=== PATIENT | female | born 1945 | race Caucasian/White ===

== ENCOUNTER → 2016-11-18 | Outpatient (CLI) | payer OTHER ==
[~2016-11-18] MED LIST: ACEON4 MG PO; ASPIR 8181 M1 PO; BIOTIN2500 MCG PO; CALCIUM-MAGNES1 EAC4 PO; CEFADROXIL 500500 M1 PO; COLACE100 MG PO; COMPLEX TP; FACE TP; FISHOIL OR; HYDROCODONE-APA1 TA1 PO; LECITHIN400 MG PO; LIPITOR10 MG PO; LORTAB 7.5/5001 TA3 PO; MEDROLDOSEPACK PO; MIRALAX17 GM PO; MULTIVITAMINS; PREDNISONE 10 M10 M1 PO; PREMARIN TOP; SENNA8.6 MG PO; TOPROL XL25 MG PO; VANIQA60 GM TP; VITAMIN B-12500 MCG PO; VITAMIN C + RO500 MG PO; VITAMIN D-32000 UNIT PO; VITAMIN E400 UNIT PO; XARELTO10 MG PO
== END ==
LOC: RAD 03:05
DX: Z12.31 Encounter for screening mammogram for malignant neoplasm of breast (principal)

== ENCOUNTER → 2017-12-06 | Outpatient (CLI) | payer OTHER | LOC: RAD 03:38 | DX: Z12.31 Encounter for screening mammogram for malignant neoplasm of breast (principal) ==

== ENCOUNTER → 2018-12-14 | Outpatient (CLI) | payer OTHER | LOC: RAD 10:33 | DX: Z12.31 Encounter for screening mammogram for malignant neoplasm of breast (principal) ==

== ENCOUNTER → 2019-12-04 | Outpatient (CLI) | payer OTHER | LOC: NUC 09:06 | DX: M85.869 Other specified disorders of bone density and structure, unspecified lower leg (principal); Z78.0 Asymptomatic menopausal state ==

== ENCOUNTER → 2019-12-18 | Outpatient (CLI) | payer OTHER | LOC: BC 09:39 | DX: Z12.31 Encounter for screening mammogram for malignant neoplasm of breast (principal) ==

== ENCOUNTER → 2020-05-26 | Outpatient (CLI) | payer OTHER | LOC: ULTRA 10:19 | PROVIDERS: ATTEND Internal Medicine | DX: E04.1 Nontoxic single thyroid nodule (principal); L72.0 Epidermal cyst ==

== ENCOUNTER → 2020-06-13 | Outpatient (CLI) | payer OTHER ==
--- NOTE | 2020-06-16 17:06 | PATH ---
[facility] [address] PATHOLOGY RPT PROCEDURE Name: DANILO WESTFALL Room #: REG [facility] Hector.#: [id number] Admission: 06/13/20 Date of : 43 Discharge: Report #: [id number] Path Case #: [id number] Note LCA Accession Number: [id number] TESTS RESULT FLAG UNITS REF RANGE LAB Clinician Provided Cytology Information No. of containers..01 Other (Miscellaneous) Source: [A] 01 ISTHMUS THYROID MASS DIAGNOSIS: [A] 02 ISTHMUS THYROID MASS SUSPICIOUS FOR MALIGNANCY. BETHESDA CATEGORY V. SUSPICIOUS FOR PAPILLARY CARCINOMA. SPECIMEN CONSISTS OF FOLLICULAR CELLS WITH NUCLEAR ENLARGEMENT, DENSE COLLOID, AND RARE INTRANUCLEAR PSEUDOINCLUSIONS. THIS PATTERN IS SUSPICIOUS FOR PAPILLARY THYROID CARCINOMA. THIS INTERPRETATION INCLUDES EVALUATION OF A CELL BLOCK. Comment: The concurrent needle core biopsy ([id number]) showed similar features with a predominantly follicular architecture. Definitive diagnosis is precluded by a limited sample. Correlate clinically and follow-up as indicated. The case was coreviewed by Dr. Katt Escalera and Dr. Beverly Sims who concur with my interpretation. Pathologist ICD10: 02 R89.6 Signed out by: 02 Leanna Akins MD, Pathologist NPI- [id number] Performed by: Rosa M Oliver, Design Transferrer ([facility]) Gross description: 01 30ML, ADRIANA VUONG, 2 FX 2 AD /LCS 06/13/20201920 Local FLAG LEGEND: L-Low Normal,H-High Normal,LL-Alert Low,HH-Alert High <-Panic Low,>-Panic High,A-Abnormal,AA-Critical Abnormal Performed at: [facility] [place] [address] Pranav Puga MD, [address] [facility] [address] Leanna Akins MD, [address] [address] PATHOLOGY RPT PROCEDURE Name: DANILO WESTFALL Room #: REG DHARMESH Morales#: [id number] Admission: 06/13/20 Date of : 43 Discharge: Report #: [id number] Path Case #: [id number] Specimen Comment: A courtesy copy of this report has been sent to [phone] Specimen Comment: Report sent to Performed at: 01 [facility] Francis Alvarez [address] [facility] [facility] [address], [place], [place] [id number] MD Pranav Puga MD Phone: [phone]
--- NOTE | 2020-06-16 18:06 | PATH ---
[facility] [address] [place] [address] PATHOLOGY RPT PROCEDURE Name: EM FINE Room #: REG DHARMESH Young.#: [id number] Admission: 06/13/20 Date of : 43 Discharge: Report #: [id number] Path Case #: [id number] LCA Accession Number: [id number] . 01 Material submitted: . thyroid gland - THYROID ISTHMUS MASS . 01 Clinical history: . Thyroid isthmus mass; thyroid nodule . 02 Diagnosis: Thyroid, thyroid isthmus mass, excision: - FRAGMENTS OF THYROID PARENCHYMA SHOWING FOLLICULAR ARCHITECTURE WITH FEATURES SUSPICIOUS FOR PAPILLARY THYROID CARCINOMA (PLEASE SEE COMMENT). (IUV:pit 06/16/2020) QTP 06/16/2020 1506 Local . 02 Comment: Examination shows tiny fragments of thyroid parenchyma intermixed with fibrovascular connective tissue. The thyroid parenchyma comprises approximately 50% of the specimen. Mixed micro-macrofollicular architecture is identified. The follicular cells show occasional nuclear enlargement, overlapping as well as rare pseudo inclusions. Clearing of nuclei, as well as papillary fibrovascular cores are not identified. Findings are highly suspicious for a partially sampled papillary thyroid carcinoma. The concurrent cytology specimen ([id number]) showed similar findings. Please note, the diagnosis is limited by the finite amount of sample available for review. Correlate clinically and follow up as indicated. . Dr. Katt Escalera and Dr. Beverly Sims have seen this case and concur with my diagnosis. (IUV:pit 06/16/2020) . 02 Electronically signed: . Leanna Akins MD, Pathologist NPI- [id number] . 01 Gross description: . The specimen is received in formalin, labeled "Em Fine, thyroid isthmus". Received are multiple minute fragments of pale cassidy tissue measuring 0.4 x 0.3 x 0.1 cm in aggregate dimensions. The specimen is filtered and entirely submitted in cassette A1. (CAA; 06/13/2020) QAC/QAC 06/13/2020 1847 Local . 02 Pathologist provided ICD-10: [address] [address] PATHOLOGY RPT PROCEDURE Name: EM FINE Room #: REG CLRaven Morales#: [id number] Admission: 06/13/20 Date of : 43 Discharge: Report #: [id number] Path Case #: [id number] E07.9, E04.1 . 02 CPT . [id number] Specimen Comment: A courtesy copy of this report has been sent to [phone] Specimen Comment: Report sent to Performed at: [address], [place] [id number] MD Pranav uPga MD Phone: [phone] Performed at: [address] [id number] MD Leanna Akins MD Phone: [phone]
== END | disposition home or self-care (01) ==
LOC: ULTRA 09:49
PROVIDERS: ATTEND Internal Medicine
DX: E04.1 Nontoxic single thyroid nodule (principal); R89.6 Abnormal cytological findings in specimens from other organs, systems and tissues; Z98.890 Other specified postprocedural states; Z79.899 Other long term (current) drug therapy

== ENCOUNTER 2020-06-30 07:57 | Inpatient (IN) | payer OTHER ==
[~2020-06-30] VITALS: Ht 162.6 cm; Wt 83.5 kg
[2020-06-30 08:02] VITALS: BP 140/79
[2020-06-30 09:05] LABS: HEMATOCRIT 41.1 % (37.0-47.0); HEMOGLOBIN 13.9 gm/dL (12.0-15.0); MCH 28.6 pg (26.0-34.0); MCHC 33.8 g/dL (28.0-37.0); MCV 84.5 fL (80.0-100.0); RBC 4.87 mil/uL (4.20-5.00); RDW 13.6 % (10.5-14.5); WBC 13.7 thou/uL (4.0-11.0)
[2020-06-30 09:14] LABS: ANION GAP 11 mmol/L (7-16); BUN 12 mg/dL (7-18); CALCIUM 8.7 mg/dL (8.5-10.1); CHLORIDE 101 mmol/L (98-107); CO2 26 mmol/L (21-32); CREATININE 0.8 mg/dL (0.6-1.0); GLUCOSE 126 mg/dL (74-106); POTASSIUM 3.5 mmol/L (3.5-5.1); SODIUM 138 mmol/L (136-145)
--- NOTE | 2020-06-30 09:19 | NUR ---
IV TEAM CALLED TO REQUEST IV ACCESS
[2020-06-30 09:23] LABS: ALBUMIN 3.3 g/dL (3.4-5.0); LIPASE 96 U/L (73-393); SGOT 23 U/L (15-37); SGPT 21 U/L (30-65); TOTAL BILIRUBIN 0.4 mg/dL (0.2-1.0); TOTAL PROTEIN 6.9 g/dL (6.4-8.2); TROPONIN-I <0.06 ng/mL (<0.06)
[2020-06-30 10:30] VITALS: BP 140/79
[2020-06-30 10:35] LABS: URINE BILIRUBIN NEGATIVE (Negative); URINE BLOOD NEGATIVE (Negative); URINE CLARITY CLEAR; URINE COLOR YELLOW; URINE GLUCOSE-RANDOM* NEGATIVE (Negative); URINE KETONES NEGATIVE (Negative); URINE LEUKOCYTES-REFLEX NEGATIVE (Negative); URINE NITRITE-REFLEX NEGATIVE (Negative); URINE PROTEIN (DIPSTICK) NEGATIVE (Negative); URINE SPECIFIC GRAVITY <= 1.005 (1.005-1.035); URINE UROBILINOGEN 0.2 E.U./dl (0.2-1.0)
[2020-06-30] MEDS ORDERED: BIOTIN5000 MCG PO (10:46)
[2020-06-30] MEDS ORDERED: VITAMIN B-121000 MC2 PO (10:48)
[2020-06-30] MEDS ORDERED: TURMERIC500 M2 PO (10:49)
[2020-06-30] MEDS ORDERED: CALCIUM MAGNES1 EACH PO (10:49)
[2020-06-30] MEDS ORDERED: LECITHIN1200 M1 PO (10:49)
[2020-06-30] MEDS ORDERED: PERINDOPRIL ERBU4 MG PO (10:50)
[2020-06-30] MEDS ORDERED: ALENDRONATE SOD35 MG PO (10:50)
[2020-06-30] MEDS ORDERED: PREMARIN0.3 MG PO (10:53)
[2020-06-30] MEDS ORDERED: CIPRO500 M1 PO (10:54)
[2020-06-30] MEDS ORDERED: METRONIDAZOLE500 M4 PO (10:54)
[2020-06-30] MEDS ORDERED: VANIQA45 GM TRANSDERM (10:54)
[2020-06-30] MEDS ORDERED: ZUPLENZ4 MG PO (10:55)
[2020-06-30] MEDS ORDERED: LOPRESSOR50 MG PO (10:58)
[2020-06-30 14:56] VITALS: BP 126/54
--- NOTE | 2020-06-30 19:48 | NUR ---
75 YO FEMALE ADMITTED TO ER FROM ED. A&OX4, IV INFUSING IN R AC. C/O RLQ PAIN. SPOUSE AT BEDSIDE. MORPHINE GIVEN FOR PAIN, ORIENTED PT TO CALL/ ROOM. VSS.
[2020-06-30 19:55] VITALS: BP 149/70
[2020-07-01] VITALS (9 sets, daily range): BP systolic 129–155; BP diastolic 57–77
--- NOTE | 2020-07-01 04:12 | NUR ---
ASSUMED PT CARE AT 1900. PT IS A&OX4. PAIN BEING MANAGED WIHT IV PAIN MEDS. NPO STATUS MAINTAINED. DR ARGUELLO BY WEN YOUNG IN AM. FLUIDS AND ANTIBIOTICS INFUSING. STANDBY ASSIST TO TOILET, USES WALKER DUE TO PAIN MAKING WALKING DIFFICULT. TEMP 99.6, PT DID NOT WANT TO DO THE TYLENOL RECTAL, WANTS TO RECHECK TEMP LATER. CURRENTLY RESTING IN BED WIHT EYES CLOSED, WILL CONTINUE TO MONITOR.
--- NOTE | 2020-07-01 08:11 | NUR ---
ASSESSMENT: CM REVIEWED CHART AND SPOKE WITH PATIENT. PT IS ALERT AND ORIENTED X4. PT IS HERE DUE TO ACUTE APPENDICITIS. PT REPORTS LIVING IN A HOUSE WITH HER . PT REPORTS ABOUT 2 STEPS TO ENTER AND NO STEPS SHE USES ONCE INSIDE. PT STATES THEY HAVE A BASEMENT BUT SHE DOES NOT GO DOWN THERE. PT REPORTS BEING FULLY INDEPENDENT WITH ADLS AND AMBULATION. PT REPORTS BEFORE THIS ONSET SHE WAS WALKING A MILE A DAY OUTSIDE. PT REPORTS THAT SHE HAS HAD [facility] IN THE PAST BUT HAS NOT HAD THEM RECENTLY. CM DISCUSSED ROLE. PT DOES NOT ANTICIPATE ANY NEEDS FROM CM AT DISCHARGE. CM WILL CONTINUE TO FOLLOW TO ASSIST NEEDED. PT IS TO HAVE LAP APPENDECTOMY.
--- NOTE | 2020-07-01 09:29 | NUR ---
Assumed care of pt. at 0700. Pt. is in pain and curious when next pain medication will be available. Pt. has many questions about when her surgery will be and appears to be very anxious. Pt. also asked questions regarding IV pumps and purposes.
--- NOTE | 2020-07-01 16:02 | EKG ---
[facility] [place] [address] ELECTROCARDIOGRAM REPORT Name: DANILO WESTFALL Room #: 447-P ADM IN M.R.#: [id number] Admission: 06/30/20 Attend Phys: Rodney Garland MD Discharge: Date of : 43 Report #: [id number] THIS REPORT FOR: cc: Javi Smith MD, Stany A. MD Couchonnal, Luis F. MD ~ THIS REPORT FOR: //name// [facility] ED Test Date: 2020-06-30 Test Time: 08:24:27 Pat Name: DANILO WESTFALL Department: Room: [facility] Gender: F Mis Director: EASTON MARQUES : 1945 Requested By: Shanae Shaw Order Number: [id number] MD: Maximus Jha Measurements Intervals [place] Rate: 66 P: 63 HI: 159 QRS: -16 QRSD: 99 T: 32 QT: 419 QTc: 439 Interpretive Statements Sinus rhythm Supraventricular bigeminy Borderline left axis deviation Anteroseptal infarct, age indeterminate No previous ECG available for comparison Electronically Signed On 07-01-2020 16:02:38 CDT by Maximus Jha [email or web address] <ELECTRONICALLY SIGNED> By: Maximus Jha MD 07/01/20 1602 3 3 Maximus Jha MD /EPI
[2020-07-02 04:42] VITALS: BP 156/62
[2020-07-02 06:16] LABS: ABSOLUTE NEUTROPHILS 9.2 thou/uL (1.4-8.2); BASOPHILS 0.4 % (0.0-2.0); EOSINOPHILS 0.7 % (0.0-3.0); HEMATOCRIT 35.5 % (37.0-47.0); LYMPHOCYTES 21.5 % (24.0-44.0); MCH 28.5 pg (26.0-34.0); MCHC 33.8 g/dL (28.0-37.0); MCV 84.3 fL (80.0-100.0); PLATELET COUNT 182 thou/uL (150-400); POLYS 67.4 % (36.0-66.0); RDW 14.1 % (10.5-14.5); WBC 13.6 thou/uL (4.0-11.0)
--- NOTE | 2020-07-02 06:20 | NUR ---
RECEIVED CARE OF THIS PATIENT AT 1900. PATIENT ALERT AND ORIENTED X4. C/O PAIN [id number]. ALTERNATING MOST OF THE TIME BETWEEN IVP AND PO PAIN MED. PATIENT HAS EXTERNAL FEMALE CATH. HAS LG IN R UPPER QUAD. TWO SMALL INCISIONS ON ABD WITH DERMABOND. NO S/S OF INFECTION. IV IN COURTNEY PATENT WITH FLUIDS INFUSING. O2 AT 3L/NC.SLEPT LITTLE THIS SHIFT.
[2020-07-02 07:11] VITALS: BP 158/79
[2020-07-02 13:08] VITALS: BP 151/74
[2020-07-02 19:35] VITALS: BP 130/69
--- NOTE | 2020-07-02 19:36 | NUR ---
Assumed care of pt. at 0700. Pt. is in a lot of pain. Pt. requires pain meds at exact times available or becomes distressed and pain at a maximum thresh hold. Still unable to ambulate with toleration. Fall precuations in place.
[2020-07-03 03:45] VITALS: BP 156/90
--- NOTE | 2020-07-03 04:17 | NUR ---
ASSUMED PT CARE AT 1900.PT C/O PAIN ON HER ABD,ALT BETWEEN IV AND PO MED.ORDER NOTED FOR ZOFRAN FOR NAUSEA.3 LAP SITES NOTED.LG DRAIN TO HER R ABD.EXT FEMALE CATH IN PLACE.PT REPOSITIONED PER HER REQUEST.PT SLEEPING ON HER BED AT THIS TIME.FALL PRECAUTIONS IN PLACE,CALL LIGHT WITHN REACH.
[2020-07-03 05:48] LABS: HEMOGLOBIN 12.6 gm/dL (12.0-15.0); MCH 28.1 pg (26.0-34.0); MCHC 33.1 g/dL (28.0-37.0); MCV 84.8 fL (80.0-100.0); RBC 4.48 mil/uL (4.20-5.00); RDW 13.8 % (10.5-14.5); WBC 19.1 thou/uL (4.0-11.0)
[2020-07-03 06:00] LABS: CALCIUM 7.4 mg/dL (8.5-10.1); CREATININE 0.7 mg/dL (0.6-1.0); MAGNESIUM 1.9 mg/dL (1.8-2.4)
[2020-07-03 08:00] VITALS: BP 147/57
--- NOTE | 2020-07-03 08:11 | NUR ---
SPOKE WITH DR GAFFNEY MORPHINE 4 MG GIVEN AFTER DCD GAVE ORDER FOR 1 TIME ONLY WAS GIVEN AT 07:51, PT WAS ALSO CHANGED TO NPO AND IS TO HAVE KUB. SPOKE WITH PHARMACIST TO MAKE SURE ORDER WAS IN AND MED WAS CHARTED CORRECT.
--- NOTE | 2020-07-03 13:23 | NUR ---
PPN STATRED AT 100/HR AT THIS TIME HAD TO LOCATER FILTER FOR IV TUBING CS DID NOT HAVE SO WENT TO ER/ICU AND FOUND. PT RESTING IN BED WAS GIVEN PRN PAIN MED AND GOING TO SLEEP WHO WAS AT BEDSIDE IS GOING TO GET LUNCH. PT IS PLEASANT AND COOPERATIVE WITH CARE.
[2020-07-03 16:59] VITALS: BP 127/73
--- NOTE | 2020-07-03 18:47 | NUR ---
COVID 19 TEST RESULTS SHOW NOT DETECTED
[2020-07-03 22:10] VITALS: BP 141/60
[2020-07-04 03:00] VITALS: BP 144/99
--- NOTE | 2020-07-04 03:08 | NUR ---
PT'S PAIN MANAGED WITH IV MED.PT UP TO THE BSC WITH ASSIST X1.PT STILL HAVE NOT HAD A BM YET.PT STILL ON PPN FOR NUTRITION.LAP SITES INRACT WITH DRAIN TO HER RUQ ON HER ABD.PT HAS BEEN SLEEPING ON AND OFF.HOURLY ROUNDS MAINTAINED. FALL PRECAUTIONS IN PLACE,CALL LIGHT WITHIN REACH.
[2020-07-04 05:14] LABS: ALBUMIN 2.5 g/dL (3.4-5.0); CALCIUM 8.1 mg/dL (8.5-10.1); CREATININE 0.8 mg/dL (0.6-1.0); MAGNESIUM 2.2 mg/dL (1.8-2.4); POTASSIUM 3.4 mmol/L (3.5-5.1); TOTAL BILIRUBIN 0.4 mg/dL (0.2-1.0); TOTAL PROTEIN 6.3 g/dL (6.4-8.2)
[2020-07-04 07:08] LABS: HEMATOCRIT 38.4 % (37.0-47.0); HEMOGLOBIN 12.6 gm/dL (12.0-15.0); MCH 27.8 pg (26.0-34.0); MCHC 32.7 g/dL (28.0-37.0); MCV 85.2 fL (80.0-100.0); RBC 4.51 mil/uL (4.20-5.00); RDW 14.3 % (10.5-14.5); WBC 25.8 thou/uL (4.0-11.0)
[2020-07-04 07:29] VITALS: BP 148/65
[2020-07-04 11:16] VITALS: BP 149/83
--- NOTE | 2020-07-04 11:41 | NUR ---
SW reviewed chart and spoke with nursing. Pt has had two negative COVID tests. Pt is currently NPO due to post-op ileus. Pt may need TPN or NG tube placed. Pt lives at home with her spouse. No discharge needs anticipated at this time. SW is available should needs arise.
--- NOTE | 2020-07-04 13:07 | NUR ---
VASCULAR ACCESS CONSULTED FOR PICC LINE. PT'S LABS,MEDS,HX,ORDER AND CONSENT VERIFIED. DISCUSSED BENEFITS AND RISK OF PICC WITH PT VERBALIZED UNDERSTANDING. ROSARIO BRACHIAL WAS WIDELY PATENT WITH USG. 4FR DL POWER PICC TRIMMED TO 43CM INSERTED TO 0CM. STAT CXR ORDERED. PT TOLERATED WELL
--- NOTE | 2020-07-04 14:15 | NUR ---
PICC TOO DEEP WITHDREW 2CM PER CXR REPORT. STAT CXR ORDERED
--- NOTE | 2020-07-04 14:40 | NUR ---
CXR CONFIRMED PICC AT [facility]. PICC RELEASED FOR IMMEDIATE USE TO MAGDI DANIEL PER PROTOCOL
[2020-07-04 15:46] VITALS: BP 167/72
--- NOTE | 2020-07-04 19:41 | NUR ---
Assumed care of pt. at 0700. Pt. is in a lot of pain and is still having issues with constipation. Restoril was given mid day and she began to have large bowel movements throughout the day. This still did not provide adequate relief of pain however. Fall precautions in place.
[2020-07-04 20:50] VITALS: BP 155/59
--- NOTE | 2020-07-05 06:00 | NUR ---
Pt. having trouble with urinary retention during the shift. Pt. straight cath times one and still having urinary retention this am. Lala VARELA called and notified and new order to insert kyle catheter (See cpoe and poc). Pt. also with nausea and vomiting and Lala VARELA notified (see new orders). Zofran given with little relief and compazine given with better relief (see cpoe). Bed alarm is on.
[2020-07-05 08:41] VITALS: BP 183/89
[2020-07-05 17:02] VITALS: BP 171/68
[2020-07-05 20:26] VITALS: BP 154/83
--- NOTE | 2020-07-05 21:24 | NUR ---
PT RESTING IN BED DOES NOT WANT TO GET UP IN BEDSIDE CHAIR. AT BEDSIDE. LUNGS CTA HAS O2 AT 2 L/NC. BS XS 4. HAS TREADWELL CATH WITH CLEAR YELLOW URINE EMPTIED 1700 CC PUT NG TUBE IN LEFT NARE TO DECOMPRESS ABD. HAS GREEN COLORED FLUID IN CANISTER. APPROX 120 CC AT 1700 PT MOVED TO [address] [place] [address]. TO APPLY TELE MONITORING. CONTINUES ON PPN FLUIDS IV NS FLUIDS AND IV ABT'S AND GIVEN PRN IV PUSH FENTANYL. LG DRAIN WITH 15 CC IN DRAIN BOTTLE.
--- NOTE | 2020-07-06 06:45 | NUR ---
Pt. rested quietly at short intervals during the night when checked on during frequent rounds. No noted emesis. Ngt patent to low intermittent suction. She has c/o abdominal pain and ivp meds given (see emar) with some relief noted. Bed alarm is on.
[2020-07-06 07:24] LABS: HEMATOCRIT 32.1 % (37.0-47.0); HEMOGLOBIN 10.8 gm/dL (12.0-15.0); MCH 28.3 pg (26.0-34.0); MCHC 33.7 g/dL (28.0-37.0); MCV 84.1 fL (80.0-100.0); RBC 3.81 mil/uL (4.20-5.00); RDW 14.2 % (10.5-14.5); WBC 14.3 thou/uL (4.0-11.0)
[2020-07-06 07:40] LABS: ALBUMIN 1.9 g/dL (3.4-5.0); CALCIUM 7.8 mg/dL (8.5-10.1); CREATININE 0.6 mg/dL (0.6-1.0); MAGNESIUM 2.1 mg/dL (1.8-2.4); TOTAL BILIRUBIN 0.3 mg/dL (0.2-1.0); TOTAL PROTEIN 5.3 g/dL (6.4-8.2)
[2020-07-06 07:44] VITALS: BP 160/76
--- NOTE | 2020-07-06 17:12 | NUR ---
Assumed pt care at 7am.Pt in bed resting with ng to lis on left nare. Assessment completed.vss but elevated bp noted. Medicated pt with fentanyl q3h for abdominal pain with relief.Ng irrigated as needed.Dr Roger and Scarlet here,order noted. at bs most of the time this shift.Will continue to monitor.
[2020-07-06 19:36] VITALS: BP 160/100
--- NOTE | 2020-07-07 03:20 | NUR ---
pain controlled this shift. patient had bowel movement x2. ng tube on left nare is intact. shira on right upper quad has minimum serosanguinous drainage. patient incontinent pericare and barrier cream applied as needed. patient has catheter, cath care done. patient turned q 2 hours. patient in bed asleep at this time breathing regular and unlaboured.
[2020-07-07 06:03] VITALS: BP 152/84
[2020-07-07 06:11] LABS: HEMATOCRIT 32.2 % (37.0-47.0); HEMOGLOBIN 10.8 gm/dL (12.0-15.0); MCH 28.2 pg (26.0-34.0); MCHC 33.5 g/dL (28.0-37.0); MCV 84.1 fL (80.0-100.0); RBC 3.83 mil/uL (4.20-5.00); RDW 14.1 % (10.5-14.5); WBC 13.6 thou/uL (4.0-11.0)
[2020-07-07 06:40] LABS: CREATININE 0.6 mg/dL (0.6-1.0); PHOSPHORUS 3.5 mg/dL (2.5-4.9); POTASSIUM 3.2 mmol/L (3.5-5.1)
[2020-07-07 07:29] VITALS: BP 173/88
--- NOTE | 2020-07-07 07:44 | O ---
[facility] [place] [address] OPERATIVE REPORT Name: DANILO WESTFALL Room #: 451-P ADM IN M.R.#: [id number] Admission: 06/30/20 Attend Phys: Rodney Garland MD Discharge: Date of : 43 Report #: [id number] THIS REPORT FOR: cc: Javi Smith MD,Randall Roche MD, MD ~ CC: Rodney Smith DATE OF SERVICE: 07/01/2020 PREOPERATIVE DIAGNOSIS: Acute appendicitis. POSTOPERATIVE DIAGNOSIS: Acute perforated appendicitis with intra-abdominal abscess. OPERATION: Diagnostic laparoscopy with drainage of intraperitoneal abscess. SURGEON: Randall Roger MD CO-SURGEON: Raimundo Del Toro MD ANESTHESIA: General. ESTIMATED BLOOD LOSS: 200 mL. SPECIMEN: None. DESCRIPTION OF PROCEDURE: After informed consent was obtained, the patient was brought to the operating room and placed supine. SCDs were placed and working, preoperative antibiotics were administered, and general anesthesia was induced. The abdomen was prepped and draped in the usual sterile fashion. A 10 mm incision was made below the umbilicus. Fascia was incised and a trocar was placed. Pneumoperitoneum was established. A right upper quadrant and left lower quadrant 5 mm trocar was placed. I explored down to the right lower quadrant. There was adherent omentum. This omentum was peeled medially. This released a large pus pocket. The pus was suctioned out. I was unable to try to dissect in this phlegmonous cavity. The inflammation was severe. I did not feel it would be safe to dissect more in this cavity without causing injury to the bowel and nearby structures. There was a small bleeding vessel from a branch of the gonadals. This was clipped and there was good hemostasis. The area was then copiously irrigated with normal saline. An 8 mm trocar was placed in the right upper quadrant and a 15-Yakut drain was placed into this cavity after it was copiously irrigated and suctioned. The CO2 was then released. [facility] [address] [place] [address] OPERATIVE REPORT Name: DANILO WESTFALL Room #: 451-P ADM IN M.R.#: [id number] Admission: 06/30/20 Attend Phys: Rodney Garland MD Discharge: Date of : 43 Report #: [id number] The fascia at the umbilicus was closed with a auadox-jz-zptbo 0 Vicryl. Skin was closed with 4-0 Monocryl. Incisions were sealed with Dermabond. COMPLICATIONS: None. DISPOSITION: The patient was taken to recovery in satisfactory condition. <ELECTRONICALLY SIGNED> By: Randall Roger MD 07/07/20 0744 1253 1306 Randall Roger MD /nt
[2020-07-07 11:35] LABS: INR 1.1; PROTIME 11.5 Seconds (9.3-11.4)
--- NOTE | 2020-07-07 13:49 | NUR ---
ASSUMED CARE AT 0700. PT IS ALERT AND ORIENTED/FORGETFUL. VSSA/2L O2. ON TELE. H/O AFIB. PAIN MEDS GIVEN ORDERED. SHE IS NPO WITH NG TO LOW INT SUCTION WITH GREEN BILE OUT. HER BS ARE HYPO, BUT SHE IS PASSING GAS/STOOLING. TREADWELL IS DRAINING YELLOW URINE NORMALLY. LG DRAIN TO RUQ DRAINING. PICC IS INFUSING WITHOUT ISSUES. LAP SITES ARE C/D/I. PT UNABLE TO GET OUT OF BED YET. ENCOURAGE TURNING OR SHIFTING WEIGHT. PT VERBALIZES UNDERSTANDING TO CALL IF NEEDS ARISE. CALL LIGHT IN REACH. AT BS. WILL CONTINUE TO MONITOR
[2020-07-07 15:11] VITALS: BP 154/85
--- NOTE | 2020-07-07 15:50 | NUR ---
PT WAS SUPPOSED TO HAVE A DRAIN PLACED FOR ABDOMINAL ABSESSES BUT IT IS NOW TO BE PLACED TOMORROW. CARE TEAM INDICATING THAT PT WILL NEED TRANSFER TO [facility] FOR UROLOGY SERVICES DAY OF DRAIN PLACEMENT OR DAY AFTER. CM FOLLOWING REGARDING DC PLANNING.
[2020-07-07 20:10] VITALS: BP 152/104
--- NOTE | 2020-07-08 04:08 | NUR ---
PAIN CONTROLLED THIS SHIFT. CATH CARE DONE THIS SHIFT. LG TUBE HAS MINIMUM SENGUNEOUS DRAINAGE. NG TUBE IS ON LEFT NARE WITH GREENISH OUTPUT. PATIENT IS ON 2L OXYGEN NO SOA OR DISTRESS NOTED THIS SHIFT. PATIENT IN BED ASLEEP AT THIS TIME BREATHING REGULAR AND UNLABOURED.
[2020-07-08 05:33] VITALS: BP 168/90
[2020-07-08 07:02] LABS: CALCIUM 8.3 mg/dL (8.5-10.1); CREATININE 0.6 mg/dL (0.6-1.0); PHOSPHORUS 3.6 mg/dL (2.5-4.9); POTASSIUM 3.6 mmol/L (3.5-5.1)
[2020-07-08 07:44] VITALS: BP 143/78
--- NOTE | 2020-07-08 12:21 | NUR ---
ASSUMED CARE AT 0700. PT IS ALERT AND ORIENTED. VSSA/2L O2. ON TELE. PAIN MEDS GIVEN NEEDED. TREADWELL IN PLACE. STILL MUTIPLE LOOSE STOOLS DURING THE DAY. NG IN PLACE TO LIS. NPO. LG DRAIN IN PLACE. PICC LINE INFUSING. LAP SITES ARE C/D/I. PT TO HAVE SECOND DRAIN PLACED TODAY. EDUCATION PROVIDED TO PT REGARDING POC AND SAFETY. CALL LIGHT IN REACH. WILL CONTINUE TO MONITOR
--- NOTE | 2020-07-08 15:04 | NUR ---
PT HAD GONE DOWN TO IR TO HAVE ANOTHER DRAIN PLACED THIS DAY BUT HAD BEEN SENT BACK UP THERE WAS A LAB THAT WAS ELEVATED. ARGUELLO INDICATED THAT SHE DOESN'T NEED ABOTHER DRAIN THAT ISSUE IS RESOLVING. KO AND SAUNDRA INDICATED THAT CM SHOULD PROCEED WITH INITIATING TRANSFER TO [facility] FOR UROLOGY SERVICES. CM MET WITH PT AND SPOUSE AND THEY ARE AWARE AND CONSENTING. CM CAONTACTED [facility] RANGE ECOLOGIST AND INDICATED PREFERENCE FOR [facility]. SHE INDICATED THAT [facility] IS HOLDING IN THE ED AND OTHER FACILITIES ARE ON DIVERSION SO TRANSFER TODAY DIDN'T LOOK LIKELY. CM FAXED CLINICAL INFO TO THEM AND PROVIDED DR. CONNELL'S NUMBER FOR THEM TO CONTACT FOR ADDITIONAL INFO.
[2020-07-08 19:23] VITALS: BP 164/74
--- NOTE | 2020-07-09 05:55 | NUR ---
VSS-AFEBRILE. RESTED WELL THROUGH NIGHT WITH FEW NEEDS. C/O ABDOMINAL PAIN THAT IS WELL RELIEVED WITH IV FENTANYL. LG DRAIN PRODUCING SMALL AMOUNT OF SEROUS DRAINAGE, LAP SITES CLOSED, AND ARE WITHOUT S/S OF INFECTION. TREADWELL DRAINING ADEQUATE AMOUNTS OF CLEAR, YELLOW URINE TO DEPENDENT DRAINAGE BAG. CALLS APPROPRIATELY FOR ANY NEEDED ASSISTANCE. INCONTINENT OF RUNNY STOOL TWICE DURING SHIFT.
[2020-07-09 07:37] VITALS: BP 142/85
--- NOTE | 2020-07-09 09:21 | NUR ---
Assumed patient care at 0715. Vital signs stable, LSCTA, ABD soft and tender, BS x's 4 (hypoactive). Patient is complaining of abdominal pain "level eight." She had Fentanyl 0.25ml at 0630; it is scheduled q 3 hours. Patient is waiting to go to [facility] for Urinary Stent Placement, as there is no Urologist at this facility. Waiting for bed availability. Will continue to monitor.
--- NOTE | 2020-07-09 11:15 | NUR ---
discussed with hospitalist earlier today, still plan will need to be to transfer to [facility] with urology. cm notified by cm team that [facility] called and they are on diversion. will discuss with pt and family and send out other referral to transfer.
[2020-07-09 13:13] VITALS: BP 150/81
== END 2020-07-09 18:45 | disposition short-term general hospital (02) | DRG 871 ==
LOC: ER 07:57 → EROBS 11:11 → 4S 11:11 → 4W 07-05 17:47
PROVIDERS: Hospitalist; Radiology Vascular & Interventional Radiology; Student in an Organized Health Care Education/Training Program; Surgery; ADMIT Internal Medicine; ATTEND Internal Medicine
PROC: 0D9W4ZZ Drainage of Peritoneum, Percutaneous Endoscopic Approach (ICD-10-PCS; 2020-07-01)
PROC: 02HV33Z Insertion of Infusion Device into Superior Vena Cava, Percutaneous Approach (ICD-10-PCS; principal; 2020-07-04)
DX: A41.9 Sepsis, unspecified organism (principal); K35.33 Acute appendicitis with perforation, localized peritonitis, and gangrene, with abscess; E44.1 Mild protein-calorie malnutrition; N13.6 Pyonephrosis; K56.7 Ileus, unspecified; I10 Essential (primary) hypertension; M81.0 Age-related osteoporosis without current pathological fracture; G47.00 Insomnia, unspecified; E53.8 Deficiency of other specified B group vitamins; K58.1 Irritable bowel syndrome with constipation; E87.6 Hypokalemia; Z20.828 Contact with and (suspected) exposure to other viral communicable diseases; Z85.850 Personal history of malignant neoplasm of thyroid; Z85.6 Personal history of leukemia; Z79.82 Long term (current) use of aspirin; Z79.899 Other long term (current) drug therapy; Z79.01 Long term (current) use of anticoagulants; Z68.31 Body mass index [BMI] 31.0-31.9, adult
CPT/HCPCS: 10045; 10195; 27000; 50101; 50411; 50555; 50739; 50740; 51489; 52265; 52266; 53040; 53307; 53312; 53314; 54118; 55245; 56525; 56526; 62110; 62900

== ENCOUNTER 2020-07-22 09:23 | Emergency (ER) | payer OTHER ==
[~2020-07-22] VITALS: Ht 162.6 cm; Wt 73.5 kg
--- NOTE | ~2020-07-22 | EMS ---
[address] [place] [address] EMS Patient Care Report Name: DANILO EWSTFALL Room #: REG SAGE Morales#: [id number] Admission: 07/22/20 Attend Phys: Discharge: Date of : 43 Report #: [id number] THIS REPORT FOR: //name// Report Transmitted: 07/22/2020 10:50 EMS Care Summary [facility] MED-ACT Incident [id number] @ 07/22/2020 08:57 Incident Location [address] [place] [address] Patient DANILO WESTFALL Female, 75 Years 1945 Patient Address [address] [place], [place] [id number] Patient History Osteoporosis,Atrial Fibrillation,Appendectomy, Patient Allergies Nitroglycerin, Patient Medications Metoprolol, Chief Complaint "I dont feel right." Disposition Transported No Lights/[place] Dispatch Reason Chest Pain (Non-Traumatic) Transported To Narrative "I don't feel right." Dispatched to this location emergent for a female PT with complaints of feeling [address] [place] [address] EMS Patient Care Report Name: DANILO WESTFALL Room #: REG Andrew#: [id number] Admission: 07/22/20 Attend Phys: Discharge: Date of : 43 Report #: [id number] like her heart was beating too fast and feeling sweaty. Staff reports they contacted 911 because the PT was experiencing chest pain, hypertension and was diaphoretic. They report they gave her one dose of nitro at 8:53 AM. Staff reports these were doctors orders and were unaware that she was allergic to the medication. They deny any adverse reactions since the medication was given. PT reports she had her appendix rupture about 3 weeks earlier and she has since had infections that have resulted in two drainage ports being placed in her abdomen and a PICC like for antibiotic administration. She reports currently being on antibiotics orally. PT denies any difficulty breathing. They denies and chest pain and reports she never experienced chest pain. She states she felt like her heart was beating to fast and she felt sweaty. She states for the last few days she has had diarrhea and been vomiting. She denies any fevers and staff confirms no fevers. PT denies any abdominal pain. She denies feeling dizzy. She reports she has been eating and drinking normally, but gets nauseated immediately after eating. She denies any recent changes to her medication. She reports she feels weaker. Initial Vitals @09:09MI Suspected: false @09:08MI Suspected: false @09:05P: 91,R: 18,BP: 172/94,Pain: 0/10,GCS: 15,Temp: 98F,SpO2: 94,Revised Trauma: 12, @09:14P: 93,R: 18,BP: 152/100,GCS: 15,SpO2: 95,Revised Trauma: 12, Assessments @09:02MENTAL:Person Oriented,Time Oriented,Place Oriented,Event Oriented,SKIN:Pale,HEENT:Head/Face: No Abnormalities,Neck/Airway: No Abnormalities,LUNG SOUNDS:General: No Abnormalities,ABDOMEN:General: No Abnormalities,PELVIS//GI:EXTREMITIES:PULSE:Radial: 2+ Normal,NEURO: Impression Generalized Weakness Procedures @09:0812-Lead ECG@09:0912-Lead ECG Timeline 08:54,Call Received 08:54,Psap Call 08:57,Dispatched 08:57,En Route 08:58,On Scene 09:00,At Patient 09:05,BP: 172/94 M,PULSE: 91,RR: 18 R,SPO2: 94 Ox,ETCO2: ,BG: ,PAIN: 0,GCS: 15, 09:08,12-Lead ECG, 09:08,BP: / M,PULSE: ,RR: R,SPO2: Ox,ETCO2: ,BG: ,PAIN: ,GCS: , [address] [place] [address] EMS Patient Care Report Name: DANILO WESTFALL [facility] #: [facility] [id number] Admission: 07/22/20 Attend Phys: Discharge: Date of : 43 Report #: [id number] 09:09,12-Lead ECG, 09:09,BP: / M,PULSE: ,RR: R,SPO2: Ox,ETCO2: ,BG: ,PAIN: ,GCS: , 09:11,Depart Scene 09:14,BP: 152/100 M,PULSE: 93,RR: 18 R,SPO2: 95 Ox,ETCO2: ,BG: ,PAIN: ,GCS: 15, 09:19,At Destination 09:39,Call Closed Disclaimer [email or web address] Copyright 2020 [email or web address] This EMS Care Summary contains data elements from the applicable legal record (which may be displayed differently). It is designed to provide pertinent information for the following purposes: continuity of care, clinical quality, and state data reporting. The complete legal record is available to ED staff and administrators of the receiving hospital in [employer]'s Patient Tracker. All data is provided "as is."
[~2020-07-22 09:23] MED LIST changes: +ALENDRONATE SOD35 MG PO; +BIOTIN5000 MCG PO; +CALCIUM MAGNES1 EACH PO; +CIPRO500 M1 PO; +LECITHIN1200 M1 PO; +LOPRESSOR50 MG PO; +METRONIDAZOLE500 M4 PO; +PERINDOPRIL ERBU4 MG PO; +PREMARIN0.3 MG PO; +TURMERIC500 M2 PO; +VANIQA45 GM TRANSDERM; +VITAMIN B-121000 MC2 PO; +ZUPLENZ4 MG PO
[2020-07-22 10:30] LABS: HEMATOCRIT 31.1 % (37.0-47.0); HEMOGLOBIN 10.3 gm/dL (12.0-15.0); MCH 27.3 pg (26.0-34.0); MCHC 33.2 g/dL (28.0-37.0); PLATELET COUNT 138 thou/uL (150-400); RBC 3.79 mil/uL (4.20-5.00); RDW 14.4 % (10.5-14.5); WBC 3.7 thou/uL (4.0-11.0)
[2020-07-22 10:40] LABS: ANION GAP 9 mmol/L (7-16); BUN 4 mg/dL (7-18); CALCIUM 8.3 mg/dL (8.5-10.1); CHLORIDE 103 mmol/L (98-107); CO2 27 mmol/L (21-32); CREATININE 0.6 mg/dL (0.6-1.0); GLUCOSE 148 mg/dL (74-106); POTASSIUM 3.3 mmol/L (3.5-5.1); SODIUM 139 mmol/L (136-145)
[2020-07-22 10:49] LABS: MAGNESIUM 1.9 mg/dL (1.8-2.4); TROPONIN-I <0.06 ng/mL (<0.06)
[2020-07-22 11:07] LABS: ATYPICAL LYMPHS 1 %
[2020-07-22 11:08] LABS: ANISOCYTOSIS SLIGHT
[2020-07-22 11:58] LABS: URINE BILIRUBIN NEGATIVE (Negative); URINE BLOOD 3+ (Negative); URINE COLOR LT PINK; URINE GLUCOSE-RANDOM* NEGATIVE (Negative); URINE KETONES NEGATIVE (Negative); URINE LEUKOCYTES-REFLEX 1+ (Negative); URINE NITRITE-REFLEX NEGATIVE (Negative); URINE PROTEIN (DIPSTICK) TRACE (Negative); URINE SPECIFIC GRAVITY 1.015 (1.005-1.035); URINE UROBILINOGEN 0.2 E.U./dl (0.2-1.0)
[2020-07-22 11:59] LABS: URINE CLARITY HAZY
[2020-07-22 12:01] LABS: CASTS None Seen /LPF (None Seen); SQUAMOUS 0-3 Few /LPF (0-3); URINE RBC >20 Many /HPF (0-2); URINE WBC-REFLEX 0-5 Rare /HPF (0-5)
[2020-07-22 12:02] LABS: BACTERIA-REFLEX None Seen /HPF (None Seen); CALCIUM OXALATE 0-3 Few /LPF (None Seen); YEAST-REFLEX Present (None Seen)
[2020-07-22 13:26] VITALS: BP 159/76
--- NOTE | 2020-07-22 14:45 | EKG ---
[facility] [place] [address] ELECTROCARDIOGRAM REPORT Name: DANILO WESTFALL [facility] [id number] Admission: 07/22/20 Attend Phys: Discharge: 07/22/20 Date of : 43 Report #: [id number] THIS REPORT FOR: cc: Javi Smith MD, Stany A. MD Lundgren, Craig H. MD [facility] ~ THIS REPORT FOR: //name// [facility] ED Test Date: 2020-07-22 Test Time: 11:25:44 Pat Name: DANILO WESTFALL Department: Room: Gender: F Bean Dumper: : 1945 Requested By: John Mayorga Order Number: [id number] MD: Guzman Ledesma Measurements Intervals Er[place] Rate: 93 P: 55 RI: 154 QRS: 25 QRSD: 99 T: 44 QT: 402 QTc: 501 Interpretive Statements Sinus rhythm Occasional premature ventricular complexes Nonspecific T abnormalities Borderline prolonged QT interval Compared to ECG 06/30/2020 08:24:27 Ventricular premature complex(es) now present T-wave abnormality now present Electronically Signed On 07-22-2020 14:45:41 CDT by Guzman Ledesma [email or web address] <ELECTRONICALLY SIGNED> By: Guzman Ledesma MD, [facility] 07/22/20 1445 1125 1125 Guzman Ledesma MD, [facility] /EPI
== END 2020-07-22 13:27 | disposition home or self-care (01) ==
LOC: ER 09:23
PROVIDERS: Emergency Medicine
DX: R00.2 Palpitations (principal); R06.82 Tachypnea, not elsewhere classified; R61 Generalized hyperhidrosis; C91.10 Chronic lymphocytic leukemia of B-cell type not having achieved remission; C73 Malignant neoplasm of thyroid gland; I10 Essential (primary) hypertension; Z90.89 Acquired absence of other organs; Z79.899 Other long term (current) drug therapy; Z79.82 Long term (current) use of aspirin

== ENCOUNTER → 2020-09-25 | Outpatient (CLI) | payer OTHER | LOC: ULTRA 10:15 | PROVIDERS: ATTEND Otolaryngology Plastic Surgery within the Head & Neck | DX: C73 Malignant neoplasm of thyroid gland (principal); E04.2 Nontoxic multinodular goiter ==

== ENCOUNTER → 2020-09-26 | Outpatient (CLI) | payer OTHER | LOC: SJCVC 09:58 | PROVIDERS: ATTEND Internal Medicine Cardiovascular Disease | DX: R94.31 Abnormal electrocardiogram [ECG] [EKG] (principal); I34.1 Nonrheumatic mitral (valve) prolapse; I10 Essential (primary) hypertension; E78.00 Pure hypercholesterolemia, unspecified; I34.0 Nonrheumatic mitral (valve) insufficiency; I25.10 Atherosclerotic heart disease of native coronary artery without angina pectoris; Z79.899 Other long term (current) drug therapy ==

== ENCOUNTER → 2020-09-29 | Outpatient (CLI) | payer OTHER | LOC: SJCVCIMAG 07:39 | PROVIDERS: ATTEND Internal Medicine Cardiovascular Disease | DX: I08.1 Rheumatic disorders of both mitral and tricuspid valves (principal); R00.0 Tachycardia, unspecified; I49.3 Ventricular premature depolarization; I25.10 Atherosclerotic heart disease of native coronary artery without angina pectoris; Z79.899 Other long term (current) drug therapy ==

== ENCOUNTER → 2020-12-02 | Outpatient (CLI) | payer OTHER | LOC: CAT 10:17 | PROVIDERS: ATTEND Surgery | DX: K57.30 Diverticulosis of large intestine without perforation or abscess without bleeding (principal); K37 Unspecified appendicitis; N85.2 Hypertrophy of uterus; N85.8 Other specified noninflammatory disorders of uterus ==

== ENCOUNTER → 2020-12-24 | Outpatient (CLI) | payer OTHER | LOC: CAT 12:37 | PROVIDERS: ATTEND Internal Medicine Cardiovascular Disease | DX: Z13.6 Encounter for screening for cardiovascular disorders (principal); I25.10 Atherosclerotic heart disease of native coronary artery without angina pectoris; E78.00 Pure hypercholesterolemia, unspecified ==

== ENCOUNTER → 2021-01-14 | Outpatient (CLI) | payer OTHER | LOC: BC 10:30 | PROVIDERS: ATTEND Internal Medicine | DX: Z12.31 Encounter for screening mammogram for malignant neoplasm of breast (principal) ==

== ENCOUNTER → 2021-01-21 | Outpatient (CLI) | payer OTHER | LOC: SJCVC 13:12 | PROVIDERS: ATTEND Internal Medicine Cardiovascular Disease | DX: R94.31 Abnormal electrocardiogram [ECG] [EKG] (principal); I49.9 Cardiac arrhythmia, unspecified; I45.10 Unspecified right bundle-branch block; I25.10 Atherosclerotic heart disease of native coronary artery without angina pectoris; I10 Essential (primary) hypertension; I34.0 Nonrheumatic mitral (valve) insufficiency; I34.1 Nonrheumatic mitral (valve) prolapse; I38 Endocarditis, valve unspecified; E78.00 Pure hypercholesterolemia, unspecified; C91.10 Chronic lymphocytic leukemia of B-cell type not having achieved remission; Z98.890 Other specified postprocedural states; Z79.82 Long term (current) use of aspirin; Z79.899 Other long term (current) drug therapy; Z82.49 Family history of ischemic heart disease and other diseases of the circulatory system ==

== ENCOUNTER → 2021-07-01 | Outpatient (CLI) | payer OTHER | LOC: SJCVC 11:21 | PROVIDERS: ATTEND Internal Medicine Cardiovascular Disease | DX: R94.31 Abnormal electrocardiogram [ECG] [EKG] (principal); I34.0 Nonrheumatic mitral (valve) insufficiency; I10 Essential (primary) hypertension; E78.00 Pure hypercholesterolemia, unspecified; I34.1 Nonrheumatic mitral (valve) prolapse; C91.10 Chronic lymphocytic leukemia of B-cell type not having achieved remission; I25.10 Atherosclerotic heart disease of native coronary artery without angina pectoris; Z98.890 Other specified postprocedural states; Z88.8 Allergy status to other drugs, medicaments and biological substances; Z79.82 Long term (current) use of aspirin; Z79.899 Other long term (current) drug therapy ==